=== PATIENT | female | born 1990 | race Caucasian/White ===

== ENCOUNTER 2017-03-03 21:48 | Emergency (ER) | payer OTHER ==
[~2017-03-03] VITALS: Ht 157.5 cm; Wt 82.1 kg
[~2017-03-03 21:48] MED LIST: NAPR220T29 PO; [UNRECOGNIZED DRUG - CODE] PO
[2017-03-03 21:53] VITALS: BP 116/62
--- NOTE | 2017-03-03 22:23 | NUR ---
PHLEB DRAWING PATIENT LABS
--- NOTE | 2017-03-03 22:26 | NUR ---
BLOOD DONE BY LAB, PT SENT TO U/S WITH TECH AAOX4
[2017-03-03 22:34] LABS: BASOPHILS # (AUTO) 0.2 K/uL (0.00-0.22); BASOPHILS % (AUTO) 1.9 % (0.0-2.0); EOSINOPHILS # (AUTO) 0.2 K/uL (0-0.4); EOSINOPHILS % (AUTO) 1.8 % (0.0-4.0); HEMATOCRIT 42.5 % (36-48); HEMOGLOBIN 14.1 g/dL (12.0-16.0); LYMPHOCYTES # (AUTO) 2.2 K/uL (2.5-16.5); LYMPHOCYTES % (AUTO) 17.9 % (20.5-51.1); MEAN CORPUSCULAR HEMOGLOBIN 29 pg (27-31); MEAN CORPUSCULAR HGB CONC 33 g/dL (33-37); MEAN CORPUSCULAR VOLUME 88 fL (80-94); MONOCYTES # (AUTO) 0.5 K/uL (0.8-1.0); MONOCYTES % (AUTO) 4.2 % (1.7-9.3); NEUTROPHILS % (AUTO) 74.2 % (42.2-75.2); PLATELET COUNT (AUTO) 408 K/uL (140-450); RED BLOOD CELL COUNT(AUTO) 4.86 MIL/uL (4.20-5.40); RED CELL DISTRIBUTION WIDTH 13.1 % (11.6-13.7); WHITE BLOOD COUNT (AUTO) 12.1 K/uL (4.8-10.8)
[2017-03-03 22:52] LABS: APPEARANCE,URINE SL CLOUDY (CLEAR); BILIRUBIN,URINE NEGATIVE (NEGATIVE); BLOOD, URINE 2+ (NEGATIVE); COLOR,URINE YELLOW (YELLOW); LEUKOCYTE ESTERASE ,URINE 1+ (NEGATIVE); NITRITE, URINE NEGATIVE (NEGATIVE); PH,URINE 5.5 (5.0-9.0); UGLUCOSE NEGATIVE (NEGATIVE)
[2017-03-03 22:55] LABS: ALBUMIN 3.6 g/dL (3.4-5.0); ANION GAP 13.6 (8-16); CREATININE 0.8 mg/dL (0.6-1.3); POTASSIUM 3.6 mmol/L (3.5-5.1); TOTAL BILIRUBIN 0.3 mg/dL (0.0-1.0)
[2017-03-03 23:05] LABS: RBC,URINE 3-10 (FEW) /HPF (0-5)
--- NOTE | 2017-03-03 23:40 | NUR ---
PT TAKEN TO BED 7
--- NOTE | 2017-03-03 23:42 | NUR ---
26 Y/O F 6 WKS W/C/O VAGINAL SPOTING WITH ABDOMINAL CRAMPING X 1 DAY. LMP 01/15/17, [id number]. NO MEDICAL HX.
[2017-03-04 00:29] VITALS: BP 103/59
--- NOTE | 2017-03-04 00:30 | NUR ---
Patient discharged with v/s stable. Written and verbal after care instructions given and explained. Patient verbalized understanding. Ambulatory with steady gait. All questions addressed prior to discharge. Advised to follow up with PMD.
== END 2017-03-04 00:30 | disposition home or self-care (01) ==
LOC: MED 21:48
DX: O20.0 Threatened abortion (principal); Z3A.01 Less than 8 weeks gestation of pregnancy; Z79.899 Other long term (current) drug therapy
CPT/HCPCS: 36415; 76700; 76801; 80053; 81001; 81025; 84702; 85025; 86900; 86901; 87086; 99285

== ENCOUNTER 2018-09-15 15:18 | Emergency (ER) | payer OTHER ==
[~2018-09-15] VITALS: Ht 157.5 cm; Wt 87.7 kg
[2018-09-15 15:20] VITALS: BP 100/61
--- NOTE | 2018-09-15 17:05 | NUR ---
PT C/O VAGINAL BLEEDING, PT IS X10 WEEKS . LMP 07/07/18, A1 AAOX4 WITH EVEN AND STEADY GAIT. PATIENT STATES PAIN OF 0/10 AT THIS TIME; VSS; PATIENT POSITIONED FOR COMFORT; HOB ELEVATED; BEDRAILS UP X1; BED DOWN. ER MD MADE AWARE OF PT STATUS.
--- NOTE | 2018-09-15 17:37 | NUR ---
LAB AT BEDSIDE
[2018-09-15 17:54] LABS: BASOPHILS % (AUTO) 0.2 % (0.0-2.0); EOSINOPHILS # (AUTO) 0.1 K/uL (0-0.4); EOSINOPHILS % (AUTO) 0.7 % (0.0-4.0); LYMPHOCYTES # (AUTO) 1.8 K/uL (2.5-16.5); LYMPHOCYTES % (AUTO) 20.7 % (20.5-51.1); MEAN CORPUSCULAR HEMOGLOBIN 28 pg (27-31); MEAN CORPUSCULAR HGB CONC 33 g/dL (33-37); MEAN CORPUSCULAR VOLUME 83.7 fL (80-94); MONOCYTES # (AUTO) 0.5 K/uL (0.8-1.0); MONOCYTES % (AUTO) 6.2 % (1.7-9.3); NEUTROPHILS # (AUTO) 6.4 K/uL (1.8-7.7); NEUTROPHILS % (AUTO) 72.2 % (42.2-75.2); PLATELET COUNT (AUTO) 439 K/uL (140-450); RED BLOOD CELL COUNT(AUTO) 4.65 MIL/uL (4.20-5.40); RED CELL DISTRIBUTION WIDTH 14.5 % (11.6-13.7); WHITE BLOOD COUNT (AUTO) 8.9 K/uL (4.8-10.8)
--- NOTE | 2018-09-15 19:13 | NUR ---
REPORT GIVEN TO GEETA ALCOCER
[2018-09-15 19:43] VITALS: BP 108/76
--- NOTE | 2018-09-15 19:43 | NUR ---
PT DISCHARGED. DISCHARGE INFORMATION PROVIDED. QUESTIONS ANSWERED. VERBALIZED UNDERSTANDING OF DC INSTRUCTION. NO PAIN. VSS.
== END 2018-09-15 19:43 | disposition home or self-care (01) ==
LOC: MED 15:18
DX: O20.0 Threatened abortion (principal); Z79.1 Long term (current) use of non-steroidal anti-inflammatories (NSAID); Z79.899 Other long term (current) drug therapy; Z3A.10 10 weeks gestation of pregnancy
CPT/HCPCS: 36415; 76817; 81002; 81025; 84702; 85025; 86900; 86901; 99284; Q0092